=== PATIENT | male | born 1995 | race Caucasian/White ===

== ENCOUNTER 2020-10-01 10:01 | Day surgery (SDCO) | payer OTHER ==
[~2020-10-01 10:01] MED LIST: ZOFRAN8 MG PO
[2020-10-01 11:54] LABS: BASOPHIL 0.3 % (0-2); EOSINOPHIL 0.4 % (0-5); HCT 46.9 % (42.0-52.0); HGB 16.6 g/dl (13.2-18.0); LYMPHOCYTE 17.8 % (15-48); MCH 33.5 pg (25.0-31.0); MCHC 35.4 g/dL (32.0-36.0); MCV 94.7 fL (78.0-100.0); MPV 10.3 fL (6.0-9.5); NEUTROPHIL 71.8 % (41-80); NRBC 0; PLT 291 K/uL (150-400); RBC 4.95 M/uL (4.70-6.00); RDW 12.5 % (11.5-14.0); WBC 20.4 K/uL (4.0-10.5)
[2020-10-01 12:34] LABS: ALBUMIN 3.9 g/dL (3.4-5.0); BILIRUBIN - TOTAL 0.5 mg/dL (0.2-1.0); BUN/CREAT RATIO (CALC) 16.4 RATIO; CREATININE 0.73 mg/dL (0.67-1.17); GLOBULIN (CALCULATION) 3.6 g/dL; POTASSIUM 4.4 mmol/L (3.5-5.1); TOTAL PROTEIN 7.5 g/dL (6.4-8.2)
[2020-10-01] MEDS ORDERED: COZAAR25 MG PO (16:12)
[2020-10-01] MEDS ORDERED: SEROQUEL 25MG T25 MG PO (16:13)
[2020-10-01] MEDS ORDERED: VENTOLIN HFA IN18 GM INH (16:22)
[2020-10-01] MEDS ORDERED: ARNUITY ELLIPT50 MCG INH (16:25)
[2020-10-01] MEDS ORDERED: MEDROL4 MG PO (16:26)
[2020-10-01] MEDS ORDERED: HABITROL14 MG TD (16:30)
[2020-10-01] MEDS ORDERED: IBUPROFEN800 MG PO (16:31)
[2020-10-01] MEDS ORDERED: ATARAX25 MG PO (16:31)
[2020-10-01] MEDS ORDERED: REQUIP0.25 MG PO (16:32)
[2020-10-02 06:14] LABS: BASOPHIL 0.5 % (0-2); EOSINOPHIL 1.6 % (0-5); HCT 41.4 % (42.0-52.0); HGB 14.2 g/dl (13.2-18.0); LYMPHOCYTE 33.9 % (15-48); MCH 33.3 pg (25.0-31.0); MCHC 34.3 g/dL (32.0-36.0); MONOCYTE 8.2 % (0-12); MPV 10.5 fL (6.0-9.5); NEUTROPHIL 55.3 % (41-80); NRBC 0; PLT 252 K/uL (150-400); RBC 4.27 M/uL (4.70-6.00); RDW 12.8 % (11.5-14.0); WBC 15.4 K/uL (4.0-10.5)
[2020-10-02 06:45] LABS: BUN/CREAT RATIO (CALC) 15.3 RATIO; CREATININE 0.98 mg/dL (0.67-1.17); MAGNESIUM 2.1 mg/dL (1.8-2.4)
[2020-10-02] MEDS ORDERED: NORCO 5-325 TA1 EACH PO (15:33)
== END 2020-10-02 16:00 | disposition home or self-care (01) ==
LOC: FER 10:01 → FMS 14:28
PROVIDERS: Emergency Medicine; ADMIT Internal Medicine
DX: A41.9 Sepsis, unspecified organism (principal); K61.1 Rectal abscess; F10.10 Alcohol abuse, uncomplicated; F17.210 Nicotine dependence, cigarettes, uncomplicated; J44.9 Chronic obstructive pulmonary disease, unspecified; G47.00 Insomnia, unspecified; I10 Essential (primary) hypertension; Z79.899 Other long term (current) drug therapy; Z20.822 Contact with and (suspected) exposure to COVID-19; Y90.0 Blood alcohol level of less than 20 mg/100 ml
CPT/HCPCS: 36415; 72193; 80048; 80053; 83605; 83735; 84100; 84145; 85025; 87040; 87070; 87075; 87077; 87186; 87205; 93005; G0378; G0480; J1170; J2250; J2405; J2543; J2704; J3010; J3360; J7030; Q9967; U0002

== ENCOUNTER 2020-10-09 16:10 | Emergency (ER) | payer OTHER ==
[~2020-10-09 16:10] MED LIST changes: +ARNUITY ELLIPT50 MCG INH; +ATARAX25 MG PO; +COZAAR25 MG PO; +HABITROL14 MG TD; +IBUPROFEN800 MG PO; +MEDROL4 MG PO; +NORCO 5-325 TA1 EACH PO; +REQUIP0.25 MG PO; +SEROQUEL 25MG T25 MG PO; +VENTOLIN HFA IN18 GM INH
[2020-10-09] MEDS ORDERED: NORCO 5-325 TA1 EACH PO (18:30)
== END 2020-10-09 18:40 | disposition home or self-care (01) ==
LOC: FER 16:10
DX: S20.212A Contusion of left front wall of thorax, initial encounter (principal); I10 Essential (primary) hypertension; Z79.899 Other long term (current) drug therapy; W19.XXXA Unspecified fall, initial encounter
CPT/HCPCS: 71100

== ENCOUNTER 2020-10-17 13:27 | Emergency (ER) | payer OTHER ==
[2020-10-17] MEDS ORDERED: KEFLEX250 MG PO (16:59)
== END 2020-10-17 17:25 | disposition home or self-care (01) ==
LOC: FER 13:27
DX: S90.851A Superficial foreign body, right foot, initial encounter (principal); I10 Essential (primary) hypertension; J45.909 Unspecified asthma, uncomplicated; F17.210 Nicotine dependence, cigarettes, uncomplicated; Z23 Encounter for immunization; W45.8XXA Other foreign body or object entering through skin, initial encounter
CPT/HCPCS: 90471; 90715

== ENCOUNTER 2020-11-14 21:59 | Emergency (ER) | payer OTHER ==
[~2020-11-14 21:59] MED LIST changes: +KEFLEX250 MG PO
[2020-11-14 22:41] LABS: AMPHETAMINES NEGATIVE (NEGATIVE); BARBITURATES NEGATIVE (NEGATIVE); ECSTASY (MDMA) NEGATIVE (NEGATIVE); MARIJUANA (THC) NEGATIVE (NEGATIVE); METHADONE NEGATIVE (NEGATIVE)
[2020-11-14 22:42] LABS: OPIATES POSITIVE (NEGATIVE); OXYCODONE NEGATIVE (NEGATIVE)
== END 2020-11-14 23:37 | disposition home or self-care (01) ==
LOC: FER 21:59
PROVIDERS: Emergency Medicine
DX: F41.9 Anxiety disorder, unspecified (principal); M79.673 Pain in unspecified foot; F17.210 Nicotine dependence, cigarettes, uncomplicated; Z98.890 Other specified postprocedural states
CPT/HCPCS: 80305; 99283